=== PATIENT | female | born 1935 | race Caucasian/White ===

== ENCOUNTER 2017-04-11 02:08 | Emergency (ER) | payer OTHER ==
[~2017-04-11] VITALS: Ht 152.4 cm; Wt 52.2 kg
[~2017-04-11 02:08] MED LIST: AMLO5TAB4 PO; AMOX-426 PO; SYN75 PO
[2017-04-11 02:10] VITALS: BP_SYST 189
--- NOTE | 2017-04-11 02:10 | NUR ---
Patient to ER bed 07 to gown for evaluation. Side rails up. Report given to CHANDRIKA Banis
--- NOTE | 2017-04-11 02:18 | NUR ---
Patient AOx4, [facility], presents to ER with complaint of left knee swelling post fall at 0130. Patient states she missed a step on the stairs and fell. Denies any injury to head. No open areas noted. Left knee maintained elevated. No acute distress noted at this time.
--- NOTE | 2017-04-11 02:20 | NUR ---
ER MD Iqbal at bedside for medical evaluation.
[2017-04-11] MEDS ORDERED: ACETAMINOPHEN 500 MG TABLET PO ONE (02:30)
--- NOTE | 2017-04-11 02:55 | NUR ---
# 20 gauge angiocath placed to LFA. Use of asceptic technique. Opsite placed over site. Blood return noted. Blood for lab drawn from site. Flushed with 10 cc of normal saline. No evidence of infiltration noted. Patient tolerated well.
[2017-04-11] MEDS ORDERED: NACL 0.9% 1,000 ML IV ONE (03:00)
[2017-04-11] MEDS ORDERED: MORPHINE 4 MG/ML INJ. SYRINGE IVP ONE (03:00)
[2017-04-11 03:18] LABS: HEMATOCRIT 31.5 % (36-48); HEMOGLOBIN 9.8 g/dL (12.0-16.0); LYMPHOCYTES % (AUTO) 15.9 % (20.5-51.5); MEAN CORPUSCULAR HEMOGLOBIN 24 pg (27-31); MEAN CORPUSCULAR HGB CONC 31 % (32-36); MEAN CORPUSCULAR VOLUME 78 fL (79.0-98.0); MONOCYTES % (AUTO) 5.9 % (1.7-9.3); NEUTROPHILS % (AUTO) 68.6 % (40.0-70.0); PLATELET COUNT (AUTO) 351 K/uL (130-430); RED BLOOD CELL COUNT(AUTO) 4.06 MIL/uL (4.2-6.2); RED CELL DISTRIBUTION WIDTH 14.6 % (9.0-15.0); WHITE BLOOD COUNT (AUTO) 9.9 K/uL (4.8-10.8)
[2017-04-11 03:19] LABS: BASOPHILS # (AUTO) 0.5 K/uL (0.0-0.2); BASOPHILS % (AUTO) 4.9 % (0.0-2.0); EOSINOPHILS # (AUTO) 0.5 K/uL (0.0-0.4); EOSINOPHILS % (AUTO) 4.7 % (0.0-4.0); LYMPHOCYTES # (AUTO) 1.6 K/uL (1.0-5.5); MONOCYTES # (AUTO) 0.6 K/uL (0.0-1.0); NEUTROPHILS # (AUTO) 6.7 K/uL (1.8-7.7)
[2017-04-11 03:23] LABS: ANION GAP 9 (5-15); CALCIUM 9.7 mg/dL (8.4-11.0); CHLORIDE 99 mmol/L (98-107); CREATININE 1.11 mg/dL (0.55-1.30); GLUCOSE 117 mg/dL (70-99); POTASSIUM 3.7 mmol/L (3.5-5.1); SODIUM SERUM 130 mmol/L (136-145); UREA NITROGEN, BLOOD 15 mg/dL (8-21)
[2017-04-11 03:26] LABS: PROTHROMBIN TIME 10.4 SECS (9.5-12.5)
[2017-04-11 03:28] LABS: ALANINE AMINOTRANSFERASE 19 U/L (12-78); ALBUMIN 3.8 g/dL (3.4-4.8); ASPARTATE AMINOTRANSFERASE 18 U/L (10-37); TOTAL BILIRUBIN 0.5 mg/dL (0.0-1.0)
--- NOTE | 2017-04-11 03:30 | NUR ---
No adverse reactions noted after medication administration. Will continue to monitor.
--- NOTE | 2017-04-11 03:40 | NUR ---
# 16 FR Quintana catheter with use of sterile technique. Immediate return of 200 cc clear urine noted. Bedside drainage bag placed below level of bladder. Pt tolerated procedure well.
--- NOTE | 2017-04-11 03:41 | NUR ---
IVF infusing with no s/s of infiltration at this time. Will cont to monitor.
[2017-04-11 03:56] LABS: BILIRUBIN,URINE NEGATIVE (NEGATIVE); CLARITY/URINE CLEAR (CLEAR); COLOR,URINE YELLOW (YELLOW); GLUCOSE,URINE NEGATIVE (NEGATIVE); KETONES,URINE NEGATIVE (NEGATIVE); LEUKOCYTE ESTERASE ,URINE NEGATIVE (NEGATIVE); NITRITE, URINE NEGATIVE (NEGATIVE); PH,URINE 6.5 (5.0-8.0); PROTEIN URINE NEGATIVE (NEGATIVE); UROBILINOGEN,URINE 0.2 (0.2-1.0)
[2017-04-11 03:57] LABS: BLOOD, URINE TRACE (NEGATIVE)
[2017-04-11 04:03] LABS: BACTERIA,URINE RARE /HPF (None Seen); WBC,URINE 0-3 /HPF (0-3)
[2017-04-11 04:50] VITALS: BP_SYST 152
--- NOTE | 2017-04-11 04:50 | NUR ---
Patient to be transferred to [facility]. Is being transferred due to higher level of care. Receiving facility has accepting physician and available space. ER physician has signed transfer form. Patient or responsible constitution party has agreed to transfer and signed form. Patient belongings inventoried and will be sent with patient. Copy of nursing notes, lab reports, EKG, Physicians Orders and X-rays to be sent with patient. Receiving physician is Dr. Meza. [facility] ambulance service has been called for transfer. ETA is 10 minutes.
== END 2017-04-11 04:50 | disposition short-term general hospital (02) ==
LOC: SED 02:08
DX: S72.402A Unspecified fracture of lower end of left femur, initial encounter for closed fracture (principal); I10 Essential (primary) hypertension; W10.9XXA Fall (on) (from) unspecified stairs and steps, initial encounter; Y93.01 Activity, walking, marching and hiking; Y92.89 Other specified places as the place of occurrence of the external cause; Y99.8 Other external cause status
CPT/HCPCS: 36415; 51702; 73564; 80053; 81000; 84484; 85025; 85610; 85730; 93005; 96361; 96374; 99285; J2270; J7030